=== PATIENT | female | born 1975 | race African-American/Black ===

== ENCOUNTER 2016-08-17 13:38 | Emergency (ER) | payer OTHER ==
[~2016-08-17] VITALS: Ht 172.7 cm; Wt 120.2 kg
[~2016-08-17 13:38] MED LIST: ALTAVERA1 EACH PO; CELEBREX50 MG PO; CELEXA40 MG PO; CLONAZEPAM1 MG PO; GABAPENTIN300 MG PO; GUIATUSS DM SY240 ML PO; HYDROXYZINE HCL25 MG PO; HYDROXYZINE PAM50 MG PO; IMITREX50 MG PO; IMITREX6 MG/0.52 SC; LEVEMIR FL100 UNIT/1 SC; LYZA0.35 MG PO; MOTRIN800 MG PO; NORCO 5/3251 TABLET PO; NOVOLOG PE100 UNITS/ SC; PREDNISONE50 MG PO; TYLENOL WITH C1 EACH PO; ZESTRIL2.5 MG PO; [UNRECOGNIZED DRUG - OTHER] TP
[2016-08-17] MEDS ORDERED: TANZEUM30 MG/0.5 SC (15:12)
[2016-08-17] MEDS ORDERED: TRESIBA FL200 UNIT/1 SC (15:12)
[2016-08-17] MEDS ORDERED: HUMALOG100 UNIT/2 SC (15:12)
[2016-08-17] MEDS ORDERED: QSYMIA 7.5 MG-1 EACH PO (15:13)
[2016-08-17] MEDS ORDERED: VENTOLIN HFA18 GM IH (15:59)
[2016-08-17 16:07] VITALS: BP 121/84
== END 2016-08-17 16:07 | disposition home or self-care (01) ==
LOC: EME 13:38
DX: J11.1 Influenza due to unidentified influenza virus with other respiratory manifestations (principal); E11.9 Type 2 diabetes mellitus without complications; Z79.4 Long term (current) use of insulin; Z87.891 Personal history of nicotine dependence
CPT/HCPCS: 71020; 93005; 94640; 99281; 99283